=== PATIENT | male | born 1935 | race Caucasian/White ===

== ENCOUNTER 2024-08-17 09:02 | Outpatient (CLI) | payer MEDICARE ==
[~2024-08-17 09:02] MED LIST: ASPI-611 PO; HYDR-3972 PO; METF1000 PO
== END 2024-08-17 23:59 | disposition home or self-care (01) ==
LOC: RAD 09:02
PROVIDERS: ATTEND Physician Assistant
DX: K76.0 Fatty (change of) liver, not elsewhere classified (principal); J90 Pleural effusion, not elsewhere classified; R74.8 Abnormal levels of other serum enzymes
CPT/HCPCS: 76700